=== PATIENT | male | born 1970 | race Caucasian/White ===

== ENCOUNTER 2019-01-26 15:54 | Inpatient (IN) | payer OTHER ==
--- NOTE | 2019-01-26 17:42 | HP ---
CIWA Score Nausea/Vomitin-No Nausea/No Vomiting Muscle Tremors: None Anxiety: 0-No Anxiety, at Ease Agitation: 3 Paroxysmal Sweats: 1-Minimal Palms Moist Orientation: 0-Oriented Tacttile Disturbances: 0-None Auditory Disturbances: 0-None Visual Disturbances: 0-None Headache: 0-None Present CIWA-Ar Total Score: 4 - Admission Criteria OASAS Guidelines: Admission for Medically Managed Detox: Requires at least one of the followin. CIWA greater than 12 2. Seizures within the past 24 hours 3. Delirium tremens within the past 24 hours 4. Hallucinations within the past 24 hours 5. Acute intervention needed for co occurring medical disorder 6. Acute intervention needed for co occurring psychiatric disorder 7. Severe withdrawal that cannot be handled at a lower level of care (continued vomiting, continued diarrhea, abnormal vital signs) requiring intravenous medication and/or fluids 8. Patient presents the following: None of the above Admission Criteria Met: Admission criteria not met Admission ROS S - HPI Chief Complaint: alcohol detox Allergies/Adverse Reactions: Allergies Allergy/AdvReac Type Severity Reaction Status Date / Time No Known Allergies Allergy Verified 01/26/19 17:04 History of Present Illness: 48 yo male with hx of nicotine, crack /cocaine and alcohol dependence is here seeking alcohol detox PMHX: [place] Denies psych hx Denies SI/HI Last detox 1.5 years ago at [facility], reports relapse the same after discharge Longest period of sobriety three years Denies hx of seizures balck outs Exam Limitations: No Limitations - Ebola screening Have you traveled outside of the country in the last 21 days: No (N) Have you had contact with anyone from an Ebola affected area: No Do you have a fever: No - Review of Systems Constitutional: Night Sweats, Changes in sleep, Unintentional Wgt. Loss (20lbs in past year) EENT: reports: No Symptoms Reported Respiratory: reports: No Symptoms reported Cardiac: reports: No Symptoms Reported GI: reports: No Symptoms Reported : reports: No Symptoms Reported Musculoskeletal: reports: No Symptoms Reported Integumentary: reports: No Symptoms Reported Neuro: reports: No Symptoms reported Endocrine: reports: No Symptoms Reported Hematology: reports: No Symptoms Reported Psychiatric: reports: Agitated Other Systems: Reviewed and Negative Patient History - Patient Medical History Hx Anemia: No Hx Asthma: No Hx Chronic Obstructive Pulmonary Disease (COPD): No Hx Cancer: No Hx Cardiac Disorders: No Hx Congestive Heart Failure: No Hx Hypertension: No Hx Hypercholesterolemia: No Hx Pacemaker: No HX Cerebrovascular Accident: No Hx Seizures: No Hx Dementia: No Hx Diabetes: No Hx Gastrointestinal Disorders: No Hx Liver Disease: No Hx Genitourinary Disorders: No Hx Sexually Transmitted Disorders: No Hx Renal Disease (ESRD): No Hx Thyroid Disease: No Hx Human Immunodeficiency Virus (HIV): No Hx Hepatitis C: No Hx Depression: No Hx Suicide Attempt: No Hx Bipolar Disorder: No Hx Schizophrenia: No - Patient Surgical History Past Surgical History: No - PPD History Previous Implant?: No Documented Results: Negative w/o proof PPD to be Administered?: Yes - Smoking Cessation Smoking history: Current every day smoker Have you smoked in the past 12 months: Yes Aproximately how many cigarettes per day: 10 Hx Chewing Tobacco Use: No Initiated information on smoking cessation: Yes 'Breaking Loose' booklet given: 01/26/19 - Substance & Tx. History Hx Alcohol Use: No Hx Substance Use: Yes Substance Use Type: Alcohol Hx Substance Use Treatment: Yes (Last detox 1.5 years ago at [facility]) - Substances abused Alcohol Substance route: Oral Frequency: 3-6 times per week Amount used: 2 - 3 x 25 oz Age of first use: 9 (2 -3 x per week) Date of last use: 01/26/19 Crack Substance route: Smoking Frequency: Daily Amount used: 60 dollars a day more or less Age of first use: 17 Date of last use: 01/25/19 Family Disease History - Family Disease History Family History: Denies Admission Physical Exam [facility] - Vital Signs Vital Signs: Vital Signs - 24 hr 01/26/19 17:04 Temperature 98.2 F Pulse Rate 91 H Respiratory 16 Rate Blood Pressure 134/74 - Physical General Appearance: Yes: Nourished, Appropriately Dressed, Thin, Irritable HEENTM: Yes: EOMI, Hearing grossly Normal, Normal ENT Inspection, Normocephalic , Normal Voice, VLADISLAV, Pharynx Normal, Tm's normal, Other (poor dentition, [place]) Respiratory: Yes: Chest Non-Tender, Lungs Clear, Normal Breath Sounds, No Respiratory Distress, No Accessory Muscle Use Neck: Yes: Within Normal Limits Breast: Yes: Breast Exam Deferred Cardiology: Yes: Regular Rhythm, Regular Rate Abdominal: Yes: Normal Bowel Sounds, Non Tender, Flat, Soft Genitourinary: Yes: Within Normal Limits Back: Yes: Normal Inspection Musculoskeletal: Yes: full range of Motion, Gait Steady, Pelvis Stable Extremities: Yes: Normal Capillary Refill, Normal Inspection, Normal Range of Motion, Non-Tender Neurological: Yes: operating room tech II-XII NML intact, Fully Oriented, Alert, Motor Strength 5/5, Normal Response, Depressed Affect Integumentary: Yes: Normal Color, Dry, Warm Lymphatic: Yes: Within Normal Limits - Diagnostic (1) Alcohol dependence Current Visit: Yes Status: Acute Qualifiers: Substance use status: uncomplicated Qualified Code(s): F10.20 - Alcohol dependence, uncomplicated (2) Nicotine dependence Current Visit: Yes Status: Acute Qualifiers: Nicotine product type: cigarettes (3) [place] (hard of hearing) Current Visit: Yes Status: Chronic Qualifiers: Hearing loss type: unspecified Laterality: unspecified laterality Qualified Code(s): H91.90 - Unspecified hearing loss, unspecified ear Inpatient Rehab Admission - Rehab Decision to Admit Inpatient rehab admission?: Yes - Initial Determination Are CD services needed?: Yes Free of communicable disease: Yes Not in need of hospitalization: Yes - Rehab Admission Criteria Previous failed treatment: Yes Poor recovery environment: Yes Comorbidities: Yes Lacks judgement: Yes Patient is meeting Inpatient Rehab admission criteria:: Yes
[2019-01-26] MEDS ORDERED: IBUPROFEN 400 MG TABLET (FP) PO PRN (18:01)
[2019-01-26] MEDS ORDERED: MAGNESIUM HYDROX 2400MG/30ML ORAL SUSPENSION 30 ML CUP PO PRN (18:01)
[2019-01-26] MEDS ORDERED: LOPERAMIDE HCL 2 MG CAPSULE PO PRN (18:01)
[2019-01-26] MEDS ORDERED: MAGNESIUM CITRATE 300 ML BOTTLE PO PRN (18:01)
[2019-01-26] MEDS ORDERED: guaiFENesin 200 MG/10 ML 10 ML UNIT-DOSE CUPS PO PRN (18:01)
[2019-01-26] MEDS ORDERED: ACETAMINOPHEN 325 MG TABLET (FP) PO PRN (18:01)
[2019-01-26] MEDS ORDERED: hydrOXYzine PAMOATE 25 MG CAPSULE (FP) PO PRN (18:01)
[2019-01-26] MEDS ORDERED: MAG HYDROX/AL HYDROX/SIMETH 30 ML UNIT-DOSE CUP PO PRN (18:01)
[2019-01-26] MEDS ORDERED: P-EPHED 60MG/TRIPROLIDI 2.5MG TABLET PO PRN (18:01)
[2019-01-26] MEDS ORDERED: MENTHOL/PHENOL 1 EACH UD MM PRN (18:01)
[2019-01-26 18:21] VITALS: BMI 22.1
[2019-01-26] MEDS: THIAMINE HCL 100 MG TABLET (FP) PO SCH (21:34)
[2019-01-26] MEDS ORDERED: MELATONIN 5 MG TABLETS PO PRN (22:00)
[2019-01-27 09:56] LABS: ALBUMIN 3.3 g/dl (3.4-5.0); ALK PHOS 103 U/L (45-117); ANION GAP 4 MMOL/L (8-16); BILIRUBIN,TOTAL 0.2 mg/dL (0.2-1); BLOOD UREA NITROGEN 17 mg/dL (7-18); CALCIUM 8.5 mg/dL (8.5-10.1); CHLORIDE 106 mmol/L (98-107); CO2 29 mmol/L (21-32); CREATININE 1.1 mg/dL (0.55-1.3); GLUCOSE,RANDOM 93 mg/dL (74-106); POTASSIUM 4.7 mmol/L (3.5-5.1); SGOT/AST 23 U/L (15-37); SGPT/ALT 26 U/L (13-61); SODIUM 140 mmol/L (136-145); TOT PROT 6.3 g/dl (6.4-8.2)
[2019-01-27] MEDS: PRENATAL VITAMINS W/ FOLIC ACID TABLET (FP) PO SCH (09:59)
[2019-01-27 10:10] LABS: HEMATOCRIT 35.7 % (35.4-49); HEMOGLOBIN 12.1 GM/dL (11.7-16.9); MCH 31.5 pg (25.7-33.7); MCHC 34.1 g/dl (32.0-35.9); MEAN CELL VOLUME 92.4 fl (80-96); MEAN PLT VOLUME 8.8 fl (7.5-11.1); PLATELET COUNT 151 K/MM3 (134-434); RBC 3.86 M/mm3 (4.00-5.60); RDW 13.7 % (11.9-15.9); WHITE BLOOD COUNT 4.7 K/mm3 (4.0-10.0)
[2019-01-27 10:45] LABS: URINE APPEARANCE CLEAR; URINE BILIRUBIN NEGATIVE (NEGATIVE); URINE COLOR YELLOW; URINE GLUCOSE (UA) NEGATIVE (NEGATIVE); URINE KETONE NEGATIVE (NEGATIVE); URINE LEUK ESTERASE NEGATIVE (NEGATIVE); URINE NITRITE NEGATIVE (NEGATIVE); URINE PROTEIN NEGATIVE (NEGATIVE); URINE UROBILINOGEN 0.2 mg/dL (0.2-1.0)
[2019-01-27] MEDS: THIAMINE HCL 100 MG TABLET (FP) PO SCH (21:49)
[2019-01-28] MEDS: PRENATAL VITAMINS W/ FOLIC ACID TABLET (FP) PO SCH (09:57)
[2019-01-28] MEDS: THIAMINE HCL 100 MG TABLET (FP) PO SCH (21:07)
[2019-01-29] MEDS: PRENATAL VITAMINS W/ FOLIC ACID TABLET (FP) PO SCH (09:47)
--- NOTE | 2019-01-29 10:26 | EKG ---
Test Reason : Blood Pressure : / mmHG Vent. Rate : 081 BPM Atrial Rate : 081 BPM P-R Int : 150 ms QRS Dur : 086 ms QT Int : 398 ms P-R-T Axes : 061 018 019 degrees QTc Int : 462 ms NORMAL SINUS RHYTHM POSSIBLE LEFT ATRIAL ENLARGEMENT LEFT VENTRICULAR HYPERTROPHY NONSPECIFIC ST ABNORMALITY ABNORMAL ECG NO PREVIOUS ECGS AVAILABLE Confirmed by HALIE DOE MD ([id number]) on 01/29/2019 10:26:33 AM Referred By: Confirmed By:HALIE DOE MD
[2019-01-29] MEDS: THIAMINE HCL 100 MG TABLET (FP) PO SCH (22:25)
[2019-01-30] MEDS: PRENATAL VITAMINS W/ FOLIC ACID TABLET (FP) PO SCH (09:43)
[2019-01-30] MEDS: THIAMINE HCL 100 MG TABLET (FP) PO SCH (22:10)
[2019-01-31] MEDS: PRENATAL VITAMINS W/ FOLIC ACID TABLET (FP) PO SCH (09:41)
[2019-01-31] MEDS: THIAMINE HCL 100 MG TABLET (FP) PO SCH (21:08)
[2019-02-01] MEDS: PRENATAL VITAMINS W/ FOLIC ACID TABLET (FP) PO SCH (09:44)
[2019-02-01] MEDS: THIAMINE HCL 100 MG TABLET (FP) PO SCH (21:55)
[2019-02-02] MEDS: PRENATAL VITAMINS W/ FOLIC ACID TABLET (FP) PO SCH (09:46)
[2019-02-02] MEDS: THIAMINE HCL 100 MG TABLET (FP) PO SCH (21:05)
[2019-02-03] MEDS: PRENATAL VITAMINS W/ FOLIC ACID TABLET (FP) PO SCH (09:49)
[2019-02-03] MEDS: THIAMINE HCL 100 MG TABLET (FP) PO SCH (21:45)
[2019-02-04] MEDS: PRENATAL VITAMINS W/ FOLIC ACID TABLET (FP) PO SCH (09:38)
[2019-02-04] MEDS: THIAMINE HCL 100 MG TABLET (FP) PO SCH (21:54)
[2019-02-05] MEDS: PRENATAL VITAMINS W/ FOLIC ACID TABLET (FP) PO SCH (09:33)
[2019-02-05] MEDS: THIAMINE HCL 100 MG TABLET (FP) PO SCH (21:56)
[2019-02-06] MEDS: PRENATAL VITAMINS W/ FOLIC ACID TABLET (FP) PO SCH (09:44)
[2019-02-06] MEDS: THIAMINE HCL 100 MG TABLET (FP) PO SCH (21:09)
[2019-02-07] MEDS: PRENATAL VITAMINS W/ FOLIC ACID TABLET (FP) PO SCH (09:43)
[2019-02-07] MEDS: THIAMINE HCL 100 MG TABLET (FP) PO SCH (21:52)
[2019-02-08 06:42] VITALS: BP 153/87; PULSE 84; TEMP 97
--- NOTE | 2019-02-08 08:30 | PN ---
[facility] Progress Note Note: REHAB DISCHARGE NOTE: PATIENT DISCHARGE FROM REHAB TODAY. PATIENT STATES HE ACCOMPLISHED ALL REHAB GOALS, IS MEDICALLY STABLE THIS MORNING AND DENIES SI/HI. PATIENT TO ARRANGE AFTERCARE INDEPENDENTLY HE STATES THERE ARE PLENTY OF TREATMENT FACILITIES IN HIS NEIGHBORHOOD. PATIENT ENCOURAGED TO FOLLOW UP WITH PCP AND ATTEND GROUP MEETINGS TO PREVENT RELAPSE. D/C INSTRUCTIONS PROVIDED TO PATIENT BY NURSING STAFF. Vital Signs Temperature 97.0 F L 02/08/19 06:41 Pulse Rate 84 02/08/19 06:41 Respiratory Rate 18 02/08/19 06:41 Blood Pressure 153/87 02/08/19 06:41 O2 Sat by Pulse Oximetry (%) Home Medications Medication Instructions Recorded NK [No Known Home Medication] 01/26/19 Vital Signs Temperature 97.0 F L 02/08/19 06:41 Pulse Rate 84 02/08/19 06:41 Respiratory Rate 18 02/08/19 06:41 Blood Pressure 153/87 02/08/19 06:41 O2 Sat by Pulse Oximetry (%) Laboratory Tests 01/27/19 01/27/19 01/27/19 06:00 06:00 06:00 WBC 4.7 RBC 3.86 L Hgb 12.1 Hct 35.7 MCV 92.4 MCH 31.5 MCHC 34.1 RDW 13.7 Plt Count 151 MPV 8.8 Sodium 140 Potassium 4.7 Chloride 106 Carbon Dioxide 29 Anion Gap 4 L BUN 17 Creatinine 1.1 Creat Clearance w eGFR 70.86 Random Glucose 93 Calcium 8.5 Total Bilirubin 0.2 AST 23 ALT 26 Alkaline Phosphatase 103 Total Protein 6.3 L Albumin 3.3 L Urine Color Urine Appearance Urine pH Ur Specific [place] Urine Protein Urine Glucose (UA) Urine Ketones Urine Blood Urine Nitrite Urine Bilirubin Urine Urobilinogen Ur Leukocyte Esterase RPR Titer Nonreactive HIV 1&2 Antibody Screen HIV P24 Antigen 01/27/19 01/27/19 06:00 08:00 WBC RBC Hgb Hct MCV MCH MCHC RDW Plt Count MPV Sodium Potassium Chloride Carbon Dioxide Anion Gap BUN Creatinine Creat Clearance w eGFR Random Glucose Calcium Total Bilirubin AST ALT Alkaline Phosphatase Total Protein Albumin Urine Color Yellow Urine Appearance Clear Urine pH 6.0 Ur Specific [place] 1.017 Urine Protein Negative Urine Glucose (UA) Negative Urine Ketones Negative Urine Blood Negative Urine Nitrite Negative Urine Bilirubin Negative Urine Urobilinogen 0.2 Ur Leukocyte Esterase Negative RPR Titer HIV 1&2 Antibody Screen Negative HIV P24 Antigen Negative
== END 2019-02-08 09:45 | disposition home or self-care (01) | DRG 772 ==
LOC: YASAS 15:54 → Y3W 19:00
PROVIDERS: ADMIT Neuromusculoskeletal Medicine & OMM; ATTEND Neuromusculoskeletal Medicine & OMM
PROC: HZ42ZZZ Group Counseling for Substance Abuse Treatment, Cognitive-Behavioral (ICD-10-PCS; principal; 2019-01-26)
DX: F10.20 Alcohol dependence, uncomplicated (principal); F14.20 Cocaine dependence, uncomplicated; F17.210 Nicotine dependence, cigarettes, uncomplicated; H91.90 Unspecified hearing loss, unspecified ear
CPT/HCPCS: 36415; 80053; 81003; 85027; 86593; 87389; 93005; 93010

== ENCOUNTER 2019-07-14 11:05 | Inpatient (IN) | payer OTHER ==
--- NOTE | 2019-07-14 11:29 | HP ---
CIWA Score Nausea/Vomitin Muscle Tremors: 4-Moderate,w/Arms Extend (appropriate for alcohol detox) Anxiety: 4-Mod. Anxious/Guarded Agitation: 3 Paroxysmal Sweats: No Perspiration Orientation: 0-Oriented Tacttile Disturbances: 0-None Auditory Disturbances: 0-None Visual Disturbances: 0-None Headache: 0-None Present CIWA-Ar Total Score: 14 - Admission Criteria OASAS Guidelines: Admission for Medically Managed Detox: Requires at least one of the followin. CIWA greater than 12 2. Seizures within the past 24 hours 3. Delirium tremens within the past 24 hours 4. Hallucinations within the past 24 hours 5. Acute intervention needed for co occurring medical disorder 6. Acute intervention needed for co occurring psychiatric disorder 7. Severe withdrawal that cannot be handled at a lower level of care (continued vomiting, continued diarrhea, abnormal vital signs) requiring intravenous medication and/or fluids 8. Admission ROS S - HPI Chief Complaint: " I want help and I want to stop drinking. The alcohol leads to his use of crack." Allergies/Adverse Reactions: Allergies Allergy/AdvReac Type Severity Reaction Status Date / Time No Known Allergies Allergy Verified 01/26/19 17:04 History of Present Illness: 48 year old male with alcohol dependence with withdrawals and crack use disorder. Last admitted for detox in 01/2019. He relapsed 2 weeks later after completing. Patient is drinking about 4 six packs of beer daily, last drank this morning. Patient hasn't had any seizures but has had blackout 2 weeks about to the point of memory loss. Patient smokes ciggarettes 1 ppd for many years, last smoked today. PMH: None PSych: None Psurg Hx: None. Exam Limitations: No Limitations - Ebola screening Have you traveled outside of the country in the last 21 days: No Have you had contact with anyone from an Ebola affected area: No Have you been sick,other than usual withdrawal symptoms: No Do you have a fever: No - Review of Systems Constitutional: Chills EENT: reports: No Symptoms Reported Respiratory: reports: No Symptoms reported Cardiac: reports: No Symptoms Reported GI: reports: No Symptoms Reported : reports: No Symptoms Reported Musculoskeletal: reports: No Symptoms Reported Integumentary: reports: No Symptoms Reported Neuro: reports: No Symptoms reported Endocrine: reports: No Symptoms Reported Hematology: reports: No Symptoms Reported Psychiatric: reports: Judgement Intact, Mood/Affect Appropiate, Orientated x3, Agitated, Anxious Patient History - Patient Medical History Hx Anemia: No Hx Asthma: No Hx Chronic Obstructive Pulmonary Disease (COPD): No Hx Cancer: No Hx Cardiac Disorders: No Hx Congestive Heart Failure: No Hx Hypertension: No Hx Hypercholesterolemia: No Hx Pacemaker: No HX Cerebrovascular Accident: No Hx Seizures: No Hx Dementia: No Hx Diabetes: No Hx Gastrointestinal Disorders: No Hx Liver Disease: No Hx Genitourinary Disorders: No Hx Sexually Transmitted Disorders: No Hx Renal Disease (ESRD): No Hx Thyroid Disease: No Hx Human Immunodeficiency Virus (HIV): No Hx Hepatitis C: No Hx Depression: No Hx Suicide Attempt: No Hx Bipolar Disorder: No Hx Schizophrenia: No - Patient Surgical History Past Surgical History: No Hx Neurologic Surgery: No Hx Cataract Extraction: No Hx Cardiac Surgery: No Hx Lung Surgery: No Hx Breast Surgery: No Hx Breast Biopsy: No Hx Abdominal Surgery: No Hx Appendectomy: No Hx Cholecystectomy: No Hx Genitourinary Surgery: No Hx Section: No Hx Orthopedic Surgery: No Anesthesia Reaction: No - PPD History Date: 01/28/19 - Smoking Cessation Smoking history: Current every day smoker Have you smoked in the past 12 months: Yes Aproximately how many cigarettes per day: 10 Hx Chewing Tobacco Use: No Initiated information on smoking cessation: Yes 'Breaking Loose' booklet given: 07/14/19 - Substances abused Alcohol Substance route: Oral Frequency: 3-6 times per week Amount used: 2 - 3 x 25 oz Age of first use: 9 (2 -3 x per week) Date of last use: 01/26/19 Crack Substance route: Smoking Frequency: Daily Amount used: 60 dollars a day more or less Age of first use: 17 Date of last use: 01/25/19 Admission Physical Exam [facility] - Physical General Appearance: Yes: Moderate Distress, Alcohol on Breath HEENTM: Yes: EOMI, Hearing grossly Normal, Normocephalic, Normal Voice, VLADISLAV, Pharynx Normal, Tm's normal Respiratory: Yes: Chest Non-Tender, Lungs Clear, Normal Breath Sounds Neck: Yes: No masses,lesions,Nodules, Supple, Trachea in good position Breast: Yes: Within Normal Limits, Axillae without masses Cardiology: Yes: Regular Rhythm, Regular Rate, S1, S2 Abdominal: Yes: Normal Bowel Sounds, Non Tender, Flat, Soft Genitourinary: Yes: Within Normal Limits Back: Yes: Within Normal Limits Musculoskeletal: Yes: full range of Motion, Gait Steady, Pelvis Stable Extremities: Yes: Normal Capillary Refill, Normal Inspection, Normal Range of Motion, Non-Tender Neurological: Yes: production graphic designer II-XII NML intact, Fully Oriented, Alert, Motor Strength 5/5, Normal Mood/Affect Integumentary: Yes: Normal Color, Warm Lymphatic: Yes: Within Normal Limits - Diagnostic (1) Alcohol dependence with uncomplicated withdrawal Current Visit: Yes Status: Acute (2) Cocaine dependence Current Visit: Yes Status: Chronic Qualifiers: Substance use status: uncomplicated Qualified Code(s): F14.20 - Cocaine dependence, uncomplicated (3) [place] (hard of hearing) Current Visit: Yes Status: Chronic Qualifiers: Hearing loss type: unspecified Laterality: unspecified laterality Qualified Code(s): H91.90 - Unspecified hearing loss, unspecified ear (4) Nicotine dependence Current Visit: Yes Status: Chronic Qualifiers: Nicotine product type: cigarettes Cleared for Admission [facility] - Detox or Rehab [facility] Level of Care: Medically Managed Detox Regimen/Protocol: Librium Screened but not Admitted - Documentation of Visit Screened but not Admitted: No Breathalyzer - Breathalyzer Breathalyzer: 0.088 (alcohol on breath.) Urine Drug Screen - Test Device Lot number: [id number] Expiration date: 09/18/20 - Control Is test valid?: Yes - Results Drug screen NEGATIVE: Yes Urine drug screen results: [facility]-Cocaine Inpatient Rehab Admission - Rehab Decision to Admit Inpatient rehab admission?: No
[2019-07-14 11:40] VITALS: BMI 22.8
[2019-07-14] MEDS ORDERED: BISMUTH SUBSALICYLATE 262 MG/15 ML BTL PO PRN (12:09)
[2019-07-14] MEDS ORDERED: MAG HYDROX/AL HYDROX/SIMETH 30 ML UNIT-DOSE CUP PO PRN (12:09)
[2019-07-14] MEDS ORDERED: IBUPROFEN 400 MG TABLET (FP) PO PRN (12:09)
[2019-07-14] MEDS ORDERED: hydrOXYzine PAMOATE 25 MG CAPSULE (FP) PO PRN (12:09)
[2019-07-14] MEDS ORDERED: MAGNESIUM CITRATE 300 ML BOTTLE PO PRN (12:09)
[2019-07-14] MEDS ORDERED: MAGNESIUM HYDROX 2400MG/30ML ORAL SUSPENSION 30 ML CUP PO PRN (12:09)
[2019-07-14] MEDS ORDERED: METHOCARBAMOL 500 MG TABLET PO PRN (12:09)
[2019-07-14] MEDS ORDERED: ACETAMINOPHEN 325 MG TABLET (FP) PO PRN ×2 (12:09)
[2019-07-14] MEDS ORDERED: MENTHOL/PHENOL 1 EACH UD MM PRN (12:09)
[2019-07-14] MEDS ORDERED: chlordiazePOXIDE HCL 10 MG CAPSULE PO PRN (12:09)
[2019-07-14] MEDS: chlordiazePOXIDE HCL 25 MG CAPSULE PO SCH ×2 (13:45→22:11)
[2019-07-14] MEDS: NICOTINE 14 MG/24 HOURS TOPICAL PATCH TD SCH (13:45)
[2019-07-14 15:43] LABS: HEMATOCRIT 43.5 % (35.4-49); HEMOGLOBIN 14.5 GM/dL (11.7-16.9); MCH 31.2 pg (25.7-33.7); MCHC 33.3 g/dl (32.0-35.9); MEAN CELL VOLUME 93.6 fl (80-96); MEAN PLT VOLUME 8.1 fl (7.5-11.1); PLATELET COUNT 214 K/MM3 (134-434); RBC 4.65 M/mm3 (4.00-5.60); RDW 13.2 % (11.9-15.9)
[2019-07-14 15:51] LABS: ALBUMIN 4.5 g/dl (3.4-5.0); BILIRUBIN,TOTAL 0.4 mg/dL (0.2-1); BLOOD UREA NITROGEN 18.9 mg/dL (7-18); CALCIUM 9.6 mg/dL (8.5-10.1); CREATININE 1.3 mg/dL (0.55-1.3); POTASSIUM 3.9 mmol/L (3.5-5.1); TOT PROT 7.8 g/dl (6.4-8.2)
[2019-07-14] MEDS: THIAMINE HCL 100 MG TABLET (FP) PO SCH (22:11)
[2019-07-15] MEDS: chlordiazePOXIDE HCL 25 MG CAPSULE PO SCH ×3 (06:19→22:23)
[2019-07-15] MEDS: PRENATAL VITAMINS W/ FOLIC ACID TABLET (FP) PO SCH (10:00)
[2019-07-15] MEDS: NICOTINE 14 MG/24 HOURS TOPICAL PATCH TD SCH (10:01)
--- NOTE | 2019-07-15 11:47 | PN ---
[facility] CIWA - CIWA Score Nausea/Vomitin-Mild Nausea/No Vomiting Muscle Tremors: 3 Anxiety: 3 Agitation: 2 Paroxysmal Sweats: 3 Orientation: 1-Uncertain about Date Tacttile Disturbances: 0-None Auditory Disturbances: 0-None Visual Disturbances: 0-None Headache: 0-None Present CIWA-Ar Total Score: 13 [facility] Progress Note (SOAP) Subjective: doing well with librium detox regimen ambulating on hallway discuss aftercare with staff Objective: 07/15/19 11:46 Vital Signs Temperature 96.8 F L 07/15/19 09:25 Pulse Rate 82 07/15/19 09:25 Respiratory Rate 18 07/15/19 09:25 Blood Pressure 127/78 07/15/19 09:25 O2 Sat by Pulse Oximetry (%) Laboratory Last Values WBC 7.0 K/mm3 (4.0-10.0) 07/14/19 12:20 RBC 4.65 M/mm3 (4.00-5.60) 07/14/19 12:20 Hgb 14.5 GM/dL (11.7-16.9) 07/14/19 12:20 Hct 43.5 % (35.4-49) D 07/14/19 12:20 MCV 93.6 fl (80-96) 07/14/19 12:20 MCH 31.2 pg (25.7-33.7) 07/14/19 12:20 MCHC 33.3 g/dl (32.0-35.9) 07/14/19 12:20 RDW 13.2 % (11.9-15.9) 07/14/19 12:20 Plt Count 214 K/MM3 (134-434) D 07/14/19 12:20 MPV 8.1 fl (7.5-11.1) 07/14/19 12:20 Sodium 135 mmol/L (136-145) L 07/14/19 12:20 Potassium 3.9 mmol/L (3.5-5.1) 07/14/19 12:20 Chloride 98 mmol/L (98-107) 07/14/19 12:20 Carbon Dioxide 30 mmol/L (21-32) 07/14/19 12:20 Anion Gap 7 MMOL/L (8-16) L 07/14/19 12:20 BUN 18.9 mg/dL (7-18) H 07/14/19 12:20 Creatinine 1.3 mg/dL (0.55-1.3) 07/14/19 12:20 Est GFR (CKD-EPI)AfAm 73.74 07/14/19 12:20 Est GFR (CKD-EPI)NonAf 63.62 07/14/19 12:20 Random Glucose 72 mg/dL (74-106) L 07/14/19 12:20 Calcium 9.6 mg/dL (8.5-10.1) 07/14/19 12:20 Total Bilirubin 0.4 mg/dL (0.2-1) 07/14/19 12:20 AST 24 U/L (15-37) 07/14/19 12:20 ALT 25 U/L (13-61) 07/14/19 12:20 Alkaline Phosphatase 90 U/L (45-117) 07/14/19 12:20 Total Protein 7.8 g/dl (6.4-8.2) 07/14/19 12:20 Albumin 4.5 g/dl (3.4-5.0) 07/14/19 12:20 RPR Titer Nonreactive (NONREACTIVE) 07/14/19 12:20 HIV 1&2 Antibody Screen Negative 07/14/19 12:20 HIV P24 Antigen Negative 07/14/19 12:20 lab noted Assessment: 07/15/19 11:47 alcohol withdrawal sx Plan: continue librium detox regimen
[2019-07-15] MEDS ORDERED: PNEUMOCOCCAL 23 VACCINE 0.5 ML VIAL IM ONE (12:00)
[2019-07-15] MEDS ORDERED: PNEUMOC 13-VAL CONJ-DIP CRM/PF 0.5 ML DISP.SYRIN IM ONE (12:00)
[2019-07-15] MEDS: THIAMINE HCL 100 MG TABLET (FP) PO SCH (22:23)
[2019-07-16] MEDS: chlordiazePOXIDE 5 MG CAPSULE PO SCH ×3 (06:57→21:30)
[2019-07-16] MEDS: NICOTINE 14 MG/24 HOURS TOPICAL PATCH TD SCH (10:15)
[2019-07-16] MEDS: PRENATAL VITAMINS W/ FOLIC ACID TABLET (FP) PO SCH (10:15)
--- NOTE | 2019-07-16 16:58 | PN ---
S CIWA - CIWA Score Nausea/Vomitin-No Nausea/No Vomiting Muscle Tremors: 3 Anxiety: 3 Agitation: 2 Paroxysmal Sweats: No Perspiration Orientation: 0-Oriented Tacttile Disturbances: 2-Mild Itch/Numbness/Burn Auditory Disturbances: 0-None Visual Disturbances: 1-Very Mild Sensitivity Headache: 0-None Present CIWA-Ar Total Score: 11 [facility] Progress Note (SOAP) Subjective: Tremors, Anxious. Objective: PATIENT A & O X 3. IN NO ACUTE DISTRESS. 07/16/19 16:57 Vital Signs Temperature 97.1 F L 07/16/19 14:09 Pulse Rate 72 07/16/19 14:09 Respiratory Rate 18 07/16/19 14:09 Blood Pressure 121/69 07/16/19 14:09 O2 Sat by Pulse Oximetry (%) Laboratory Tests 07/14/19 07/14/19 07/14/19 12:20 12:20 12:20 WBC 7.0 RBC 4.65 Hgb 14.5 Hct 43.5 D MCV 93.6 MCH 31.2 MCHC 33.3 RDW 13.2 Plt Count 214 D MPV 8.1 Sodium 135 L Potassium 3.9 Chloride 98 Carbon Dioxide 30 Anion Gap 7 L BUN 18.9 H Creatinine 1.3 Est GFR (CKD-EPI)AfAm 73.74 Est GFR (CKD-EPI)NonAf 63.62 Random Glucose 72 L Calcium 9.6 Total Bilirubin 0.4 AST 24 ALT 25 Alkaline Phosphatase 90 Total Protein 7.8 Albumin 4.5 RPR Titer HIV 1&2 Antibody Screen Negative HIV P24 Antigen Negative 07/14/19 12:20 WBC RBC Hgb Hct MCV MCH MCHC RDW Plt Count MPV Sodium Potassium Chloride Carbon Dioxide Anion Gap BUN Creatinine Est GFR (CKD-EPI)AfAm Est GFR (CKD-EPI)NonAf Random Glucose Calcium Total Bilirubin AST ALT Alkaline Phosphatase Total Protein Albumin RPR Titer Nonreactive HIV 1&2 Antibody Screen HIV P24 Antigen LABS NOTED. Assessment: 07/16/19 16:57 WITHDRAWAL SYMPTOMS. Plan: CONTINUE DETOX. INCREASE DAILY PO WATER INTAKE.
[2019-07-16] MEDS: MELATONIN 5 MG TABLETS PO PRN (21:31)
[2019-07-16] MEDS: THIAMINE HCL 100 MG TABLET (FP) PO SCH (21:31)
[2019-07-17] MEDS ORDERED: chlordiazePOXIDE HCL 10 MG CAPSULE PO PRN
[2019-07-17] MEDS: chlordiazePOXIDE HCL 10 MG CAPSULE PO SCH ×3 (06:06→22:10)
[2019-07-17] MEDS: PRENATAL VITAMINS W/ FOLIC ACID TABLET (FP) PO SCH (10:21)
[2019-07-17] MEDS: NICOTINE 14 MG/24 HOURS TOPICAL PATCH TD SCH (10:22)
--- NOTE | 2019-07-17 17:17 | PN ---
S CIWA - CIWA Score Nausea/Vomitin-No Nausea/No Vomiting Muscle Tremors: 2 Anxiety: 3 Agitation: 2 Paroxysmal Sweats: No Perspiration Orientation: 0-Oriented Tacttile Disturbances: 0-None Auditory Disturbances: 0-None Visual Disturbances: 0-None Headache: 0-None Present CIWA-Ar Total Score: 7 [facility] Progress Note (SOAP) Subjective: Tremors, Anxious. Patient reports that current Withdrawal / Detox symptoms are minimal in degree and that he feels well overall. Objective: PATIENT A & O X 3, OBSERVED AMBULATING ON DETOX UNIT UNASSISTED. IN NO ACUTE DISTRESS. 07/17/19 17:16 Vital Signs Temperature 98.3 F 07/17/19 17:13 Pulse Rate 80 07/17/19 17:13 Respiratory Rate 18 07/17/19 17:13 Blood Pressure 129/75 07/17/19 17:13 O2 Sat by Pulse Oximetry (%) Laboratory Tests 07/14/19 07/14/19 07/14/19 12:20 12:20 12:20 WBC 7.0 RBC 4.65 Hgb 14.5 Hct 43.5 D MCV 93.6 MCH 31.2 MCHC 33.3 RDW 13.2 Plt Count 214 D MPV 8.1 Sodium 135 L Potassium 3.9 Chloride 98 Carbon Dioxide 30 Anion Gap 7 L BUN 18.9 H Creatinine 1.3 Est GFR (CKD-EPI)AfAm 73.74 Est GFR (CKD-EPI)NonAf 63.62 Random Glucose 72 L Calcium 9.6 Total Bilirubin 0.4 AST 24 ALT 25 Alkaline Phosphatase 90 Total Protein 7.8 Albumin 4.5 RPR Titer HIV 1&2 Antibody Screen Negative HIV P24 Antigen Negative 07/14/19 12:20 WBC RBC Hgb Hct MCV MCH MCHC RDW Plt Count MPV Sodium Potassium Chloride Carbon Dioxide Anion Gap BUN Creatinine Est GFR (CKD-EPI)AfAm Est GFR (CKD-EPI)NonAf Random Glucose Calcium Total Bilirubin AST ALT Alkaline Phosphatase Total Protein Albumin RPR Titer Nonreactive HIV 1&2 Antibody Screen HIV P24 Antigen LABS NOTED. Assessment: 07/17/19 17:16 WITHDRAWAL SYMPTOMS. Plan: CONTINUE DETOX. PATIENT SCHEDULED FOR D/C FROM DETOX UNIT TOMORROW.
[2019-07-17] MEDS: MELATONIN 5 MG TABLETS PO PRN (22:10)
[2019-07-17] MEDS: THIAMINE HCL 100 MG TABLET (FP) PO SCH (22:10)
[2019-07-18] MEDS ORDERED: chlordiazePOXIDE HCL 10 MG CAPSULE PO ONE (05:00)
[2019-07-18 09:47] VITALS: BP 119/76; PULSE 78; TEMP 98.2
--- NOTE | 2019-07-18 12:04 | DS ---
[facility] Detox Discharge Summary Admission Date: 07/14/19 Discharge Date: 07/18/19 - History Present History: Alcohol Dependence Additional Comments: did well with librium detox regimen no complication through out the detox stay patient is alert oriented x 3 steady gait cardiac S1S2 regular rate rhythm - Physical Exam Results Vital Signs: Vital Signs Temperature 98.2 F 07/18/19 09:47 Pulse Rate 78 07/18/19 09:47 Respiratory Rate 18 07/18/19 09:47 Blood Pressure 119/76 07/18/19 09:47 O2 Sat by Pulse Oximetry (%) Pertinent Admission Physical Exam Findings: alcohol withdrawal sx Laboratory Last Values WBC 7.0 K/mm3 (4.0-10.0) 07/14/19 12:20 RBC 4.65 M/mm3 (4.00-5.60) 07/14/19 12:20 Hgb 14.5 GM/dL (11.7-16.9) 07/14/19 12:20 Hct 43.5 % (35.4-49) D 07/14/19 12:20 MCV 93.6 fl (80-96) 07/14/19 12:20 MCH 31.2 pg (25.7-33.7) 07/14/19 12:20 MCHC 33.3 g/dl (32.0-35.9) 07/14/19 12:20 RDW 13.2 % (11.9-15.9) 07/14/19 12:20 Plt Count 214 K/MM3 (134-434) D 07/14/19 12:20 MPV 8.1 fl (7.5-11.1) 07/14/19 12:20 Sodium 135 mmol/L (136-145) L 07/14/19 12:20 Potassium 3.9 mmol/L (3.5-5.1) 07/14/19 12:20 Chloride 98 mmol/L (98-107) 07/14/19 12:20 Carbon Dioxide 30 mmol/L (21-32) 07/14/19 12:20 Anion Gap 7 MMOL/L (8-16) L 07/14/19 12:20 BUN 18.9 mg/dL (7-18) H 07/14/19 12:20 Creatinine 1.3 mg/dL (0.55-1.3) 07/14/19 12:20 Est GFR (CKD-EPI)AfAm 73.74 07/14/19 12:20 Est GFR (CKD-EPI)NonAf 63.62 07/14/19 12:20 Random Glucose 72 mg/dL (74-106) L 07/14/19 12:20 Calcium 9.6 mg/dL (8.5-10.1) 07/14/19 12:20 Total Bilirubin 0.4 mg/dL (0.2-1) 07/14/19 12:20 AST 24 U/L (15-37) 07/14/19 12:20 ALT 25 U/L (13-61) 07/14/19 12:20 Alkaline Phosphatase 90 U/L (45-117) 07/14/19 12:20 Total Protein 7.8 g/dl (6.4-8.2) 07/14/19 12:20 Albumin 4.5 g/dl (3.4-5.0) 07/14/19 12:20 RPR Titer Nonreactive (NONREACTIVE) 07/14/19 12:20 HIV 1&2 Antibody Screen Negative 07/14/19 12:20 HIV P24 Antigen Negative 07/14/19 12:20 lab noted - Treatment Hospital Course: Detox Protocol Followed, Detoxed Safely, Responded well, Discharged Condition Good, Rehab Referral Accepted Patient has Accepted [facility] - Medication Discharge Medications: Ambulatory Orders NK [No Known Home Medication] 01/26/19 - Diagnosis (1) Alcohol dependence with uncomplicated withdrawal Status: Acute (2) [place] (hard of hearing) Status: Chronic Qualifiers: Hearing loss type: unspecified Laterality: unspecified laterality Qualified Code(s): H91.90 - Unspecified hearing loss, unspecified ear (3) Nicotine dependence Status: Acute Qualifiers: Nicotine product type: cigarettes Substance use status: in withdrawal Qualified Code(s): F17.213 - Nicotine dependence, cigarettes, with withdrawal - AMA Did Patient Leave Against Medical Advice: No CIWA Score - CIWA Score Nausea/Vomitin-No Nausea/No Vomiting Muscle Tremors: 2 Anxiety: 3 Agitation: 2 Paroxysmal Sweats: No Perspiration Orientation: 0-Oriented Tacttile Disturbances: 0-None Auditory Disturbances: 0-None Visual Disturbances: 0-None Headache: 0-None Present CIWA-Ar Total Score: 7
== END 2019-07-18 09:49 | disposition home or self-care (01) | DRG 774 ==
LOC: YASAS 11:05 → Y3N 12:28
PROVIDERS: ADMIT Surgery; ATTEND Surgery
PROC: HZ2ZZZZ Detoxification Services for Substance Abuse Treatment (ICD-10-PCS; principal; 2019-07-14)
DX: F10.230 Alcohol dependence with withdrawal, uncomplicated (principal); F14.20 Cocaine dependence, uncomplicated; F17.213 Nicotine dependence, cigarettes, with withdrawal; H91.90 Unspecified hearing loss, unspecified ear
CPT/HCPCS: 36415; 80053; 85027; 86593; 87389; 90732; G0009